=== PATIENT | male | born 1985 | race Hispanic/Latino ===

== ENCOUNTER 2017-01-04 08:53 | Emergency (ER) | payer OTHER ==
[~2017-01-04] VITALS: Ht 172.7 cm; Wt 109.1 kg
[2017-01-04 08:55] VITALS: BP 154/95; PULSE 63; RESP 16; O2SAT 100
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
[2017-01-04] MEDS ORDERED: HYDROcodone-APAP 5-325 mg Tablet PO ONE (09:50)
[2017-01-04] MEDS ORDERED: HYDR-4003 PO (09:55)
[2017-01-04] MEDS ORDERED: NPR500T PO (09:55)
[2017-01-04 10:04] VITALS: BP 140/92; PULSE 65; RESP 16; O2SAT 100
== END 2017-01-04 10:05 | disposition home or self-care (01) ==
LOC: SED 08:53
DX: S22.060A Wedge compression fracture of T7-T8 vertebra, initial encounter for closed fracture (principal); S22.070A Wedge compression fracture of T9-T10 vertebra, initial encounter for closed fracture; M54.2 Cervicalgia; V43.52XA Car driver injured in collision with other type car in traffic accident, initial encounter; Y92.410 Unspecified street and highway as the place of occurrence of the external cause; Y93.89 Activity, other specified; Y99.8 Other external cause status; Z79.1 Long term (current) use of non-steroidal anti-inflammatories (NSAID); Z79.891 Long term (current) use of opiate analgesic